=== PATIENT | male | born 1955 | race Two or more races ===

== ENCOUNTER 2019-04-07 07:23 | Emergency (ER) | payer OTHER ==
[~2019-04-07] VITALS: Ht 182.9 cm; Wt 89.8 kg
[~2019-04-07 07:23] MED LIST: ALLOPURINOL100 MG PO; AMLODIPINE BES2.5 M1; AMLODIPINE BESYL5 M2 PO; ATENOLOL25 MG; COLCHICINE0.6 M1 PO; GABAPENTIN100 M2 PO; HYDROCHLOROTH12.5 M2; LIPI10 PO; LISINOPRIL40 MG PO; NIC14 TD; REN800 PO
[2019-04-07 07:36] VITALS: BP 158/89; Ht 182.9 cm; Wt 89.8 kg
== END 2019-04-07 08:07 | disposition home or self-care (01) ==
LOC: ED 07:23
DX: Z46.89 Encounter for fitting and adjustment of other specified devices (principal)